=== PATIENT | male | born 1940 | race Caucasian/White ===

== ENCOUNTER 2018-08-31 14:41 | Emergency (ER) | payer OTHER, MEDICARE ==
[2018-08-31] MEDS ORDERED: LIDOCAINE 5% (700 MG) TRANSDERMAL ADH..PATCH TP ONE (16:05)
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
== END 2018-08-31 16:29 | disposition home or self-care (01) ==
LOC: ER 14:41
DX: M54.2 Cervicalgia (principal); V49.50XA Passenger injured in collision with unspecified motor vehicles in traffic accident, initial encounter; Z95.811 Presence of heart assist device
CPT/HCPCS: 99283